=== PATIENT | female | born 1950 | race Two or more races ===

== ENCOUNTER 2024-07-12 19:44 | Emergency (ER) | payer SELFPAY ==
[~2024-07-12] VITALS: Ht 167.6 cm; Wt 100.0 kg
[2024-07-12 19:44] VITALS: BP 166/90; PULSE 85; RESP 22; TEMP 98.2; O2SAT 100
--- NOTE | 2024-07-12 20:06 | ED.PDOC ---
History of Present Illness HPI Comments 73-year-old female who came to emergency room by EMS for anxiety. Patient states she is recently stressed due to her husbands worsening dementia status and his neck injury. She feels like she was having an anxiety attack, has been having lower abdominal pain and diarrhea since this morning, felt like her faced was flushed and noted that her heart was racing. She denies any chest pains, shortness of breath, dizziness or any near syncopal attacks. Blood sugar on scene was 150, blood pressure of 166/90m mmHg and she was saturating 100% on room air. Chief Complaint: Anxiety Time Seen by MD: 20:04 Reviewed Notes: Nurses Notes Allergies: Coded Allergies: NO KNOWN ALLERGIES (Unverified , 07/12/24) Information Source: Patient, Emergency Med Personnel Mode of Arrival: EMS Severity: Moderate Timing: Hours Duration: Since onset Prehospital treatment: None Review of Systems REVIEW OF SYSTEMS: No fever, no chills, or fatigue HEENT: No sore throat, no earache, no congestion, no neck pain. Cardiac: No chest pain. (+) palpitations. , positive facial flushing Lungs: No shortness of breath, no cough. GI: No nausea, no vomiting, (+) diarrhea, no constipation, no abdominal pain : No dysuria, frequency, or urgency. No hematuria. Musculoskeletal: No joint pain , no joint swelling, no extremity edema. Skin: No rash, no itching. Neuro: No headache, no dizziness, no weakness, (+) anxiety Vital Signs Vital Signs Date Time Temp Pulse Resp B/P (MAP) Pulse Ox O2 Delivery O2 Flow Rate FiO2 07/12/24 19:44 98.2 85 22 166/90 (115) 100 98.2 Physical Exam General: Awake, alert and oriented. No acute distress. Skin: Skin in warm, dry and intact. Face is virgilio appearing. Nailbeds pink with no cyanosis. HEENT: The head is normocephalic and atraumatic. Conjunctivae are clear without exudates or hemorrhage. Sclera is non-icteric. EOM are intact. No signs of nystagmus. Eyelids are normal in appearance without swelling or lesions. Oral mucosa is pink and moist Neck: The neck is supple with normal range of motion. No JVD. Cardiac: Heart rate rapid, rhythm is normal. No murmurs, gallops, or rubs are auscultated. Respiratory: No signs of respiratory distress. Lung sounds are clear in all lobes bilaterally without rales, rhonchi, or wheezes. Abdominal: Abdomen is soft, non-tender without distention. Bowel sounds are present and normoactive in all four quadrants. Extremities: Nonpitting bilateral lower extremity edema Neurological: The patient is awake, alert and oriented to person, place, and time with normal speech. Speech is clear. There is no facial asymmetry. Psychiatric: Appropriate mood and affect. Good judgement and insight. No visual or auditory hallucinations. Past Medical History PAST MEDICAL HISTORY: CKF, HTN Surgical History: Hysterectomy Surgical History (Other): Gastric sleeve, right knee surgery LAN MANAGER History: Denies all LAN MANAGER Hx Family History Family History: Reviewed,noncontributory to illness Social History Smoker: Non-Smoker Alcohol: Denies ETOH Use Drugs: Denies Drug Use Lives In: Home Was a procedure done? Was a procedure done?: No Differential Dx Considerations may include: Electrolyte imbalance, anxiety, gastroenteritis, tachycardia, thyroid disorder, dehydration, acute coronary syndrome, other X-Ray, Labs, Meds, VS Vital Signs Date Time Temp Pulse Resp B/P (MAP) Pulse Ox O2 Delivery O2 Flow Rate FiO2 07/12/24 19:44 98.2 85 22 166/90 (115) 100 98.2 Time of 1ST Reevaluation: 19:59 Reevaluation 1ST: Unchanged Patient Education/Counseling: Diagnosis, Treatment Family Education/Counseling: No Family Present Departure 1 Departure Time of Disposition: 21:57 Impression: Primary Impression: Palpitation Additional Impressions: Sinus tachycardia Eloped from emergency department Disposition: 07 LEFT AWOL/ELOPED Condition: Stable Comments 73-year-old female who presented to the emergency department with palpitations and anxiety, feeling flush. She was noted to be tachycardic on her initial evaluation. The patient was seen and evaluated in the EMS [facility]. Plan of care was discussed with the patient and she agreed. Workup was initiated. Patient eloped from the emergency department Extensive evaluation was performed in attempt to identify or rule out: (See differential diagnosis section) The following tests were ordered, and results were reviewed by me and discussed with patient: (See diagnostic results section) The following test were independently interpreted by me: EKG, chest x-ray I reviewed and agreed with the following test results read by other providers: Chest x-ray I reviewed the following notes from the pt's past medical encounters: None available at this time Additional information was gathered from interviewing the following independent historians: EMS personnel Discussion of management or test interpretation with external physician/other qualified health care worker: N/A Addressed one or more chronic illnesses with severe exacerbation, progression, or side effects of treatment: Anxiety and an acute or chronic illness that poses a threat to life or bodily function: Sinus tachycardia Drug therapy requiring intensive monitoring for toxicity: N/A Parenteral controlled substances: N/A Decision regarding elective major surgery with identified patient or procedure risk factors: N/A Decision regarding emergency major surgery: N/A Decision not to resuscitate or to de-escalate care because of poor prognosis: N/A Diagnosis or treatment significantly limited by social determinants of health: N/A Critical Care Note Critical Care Time?: No Stability Stability form required: No Heart Score Heart Score: Heart Score Response (Comments) Value History Slightly Suspicious 0 EKG Normal 0 Age >65 2 Risk Factors 1 or 2 risk factors 1 Troponin Normal limit 0 Total 3 I personally scribed for VENICE VAZQUEZ MD ([email or web address]) on 07/12/24 at 20:06. Electronically submitted by Matteo Herman ([email or web address]). VENICE VAZQUEZ MD Jul 12, 2024 20:06
== END 2024-07-12 21:45 | disposition left against medical advice (07) ==
LOC: EDBD 19:44 → ER 19:44
DX: R00.2 Palpitations (principal); R00.0 Tachycardia, unspecified; I12.9 Hypertensive chronic kidney disease with stage 1 through stage 4 chronic kidney disease, or unspecified chronic kidney disease; N18.9 Chronic kidney disease, unspecified; F41.9 Anxiety disorder, unspecified; Z90.710 Acquired absence of both cervix and uterus; Z98.84 Bariatric surgery status; Z98.890 Other specified postprocedural states